=== PATIENT | male | born 1975 | race Two or more races ===

== ENCOUNTER 2018-09-18 09:48 | Emergency (ER) | payer SELFPAY ==
[~2018-09-18] VITALS: Ht 162.6 cm; Wt 74.8 kg
[2018-09-18 09:52] VITALS: BP 136/83
== END 2018-09-18 10:52 | disposition home or self-care (01) ==
LOC: ER 09:48
DX: S82.891A Other fracture of right lower leg, initial encounter for closed fracture (principal); W19.XXXA Unspecified fall, initial encounter; Y93.89 Activity, other specified; Y92.89 Other specified places as the place of occurrence of the external cause; Y99.8 Other external cause status
CPT/HCPCS: 73610-TC; 73630-TC